=== PATIENT | male | born 1990 | race Caucasian/White ===

== ENCOUNTER 2023-05-21 00:47 | Emergency (ER) | payer OTHER ==
[2023-05-21 01:40] VITALS: BP 143/84; PULSE 77; RESP 18; TEMP 98.2
[2023-05-21] MEDS ORDERED: IBUPROFEN 800 MG TAB PO STA (01:59)
--- NOTE | 2023-05-21 02:50 | ED ---
General Adult HPI - General Chief complaint: ENT Stated complaint: dislocated jaw Time Seen by Provider: 05/21/23 01:29 Source: patient, RN notes reviewed Mode of arrival: ambulatory Limitations: no limitations - History of Present Illness Initial comments: 32-year-old male with no significant past medical history presents the emergency department with a chief complaint of jaw pain. Patient reports that he has a previous chart injury from years ago. He reports that he was slightly the face prior to arrival. He is complaining of right-sided jaw pain. He is still able to open and close his mouth. He is able to tolerate by mouth intake. Denies any cough or respiratory distress or difficulty breathing. - Related Data Allergies Allergy/AdvReac Type Severity Reaction Status Date / Time No Known Allergies Allergy Verified 05/21/23 01:54 Review of Systems ROS Statement: Those systems with pertinent positive or pertinent negative responses have been documented in the HPI. ROS Other: All systems not noted in ROS Statement are negative. Past Medical History Past Medical History: No Reported History History of Any Multi-Drug Resistant Organisms: None Reported Past Surgical History: No Surgical Hx Reported Past Psychological History: No Psychological Hx Reported Smoking Status: Current every day smoker Past Alcohol Use History: Occasional Past Drug Use History: Marijuana General Exam - General Exam Comments Initial Comments: General: Alert, in no acute distress Head: atraumatic normocephalic. Eyes PERRL, EOMI intact, mucous membranes moist, TM joint-equal and bilaterally. No clicking or grinding or popping. Respiratory: Lungs clear to auscultation bilaterally Cardiovascular: Rate regular rate and rhythm Abdominal: Soft without guarding or rebound Extremities: Normal inspection with full range of motion and normal capillary refill Neuroogic: alert and oriented 3, CN II-XII intact, able to ambulate with steady gait Skin: warm dry and intact with normal color Limitations: no limitations Course Vital Signs 05/21/23 01:19 Temperature 98.2 F Pulse Rate 77 Respiratory 18 Rate Blood Pressure 143/84 O2 Sat by Pulse 97 Oximetry - Reevaluation(s) Reevaluation #1: 05/21/23 02:50 Patient requesting to leave prior to CT results. Patient agreeable to leave against medical advice Medical Decision Making - Medical Decision Making Was pt. sent in by a medical professional or institution (, PA, [employer] S[employer] OPERATOR, urgent care, hospital, or care home...) When possible be specific @ -[No] Did you speak to anyone other than the patient for history (EMS, parent, family, police, friend...)? What history was obtained from this source @ -[No] Did you review nursing and triage notes (agree or disagree)? Why? @ -[I reviewed and agree with nursing and triage notes] Were old charts reviewed (outside hosp., previous admission, EMS record, old EKG, old radiological studies, urgent care reports/EKG's, care home records)? Report findings @ -[No old charts were reviewed] Differential Diagnosis (chest pain, altered mental status, abdominal pain women, abdominal pain men, vaginal bleeding, weakness, fever, dyspnea, syncope, headache, dizziness, GI bleed, back pain, seizure, CVA, palpatations, mental health, musculoskeletal)? @ -[not applicable] EKG interpreted by me (3pts min.). @ -[As above] X-rays interpreted by me (1pt min.). @ -X-ray does not reveal any acute fracture or dislocation. CT interpreted by me (1pt min.). @ - U/S interpreted by me (1pt. min.). @ -[None done] What testing was considered but not performed or refused? (CT, X-rays, U/S, labs)? Why? @ -[None] What meds were considered but not given or refused? Why? @ -[None] Did you discuss the management of the patient with other professionals (professionals i.e. , PA, [employer] OPERATOR, lab, RT, psych nurse, outreach and education social worker, support dba, teacher, human resource officer, showcase maker)? Give summary @ -[No] Was smoking cessation discussed for >3mins.? @ -[No] Was critical care preformed (if so, how long)? @ -[No] Were there social determinants of health that impacted care today? How? (Homelessness, low income, unemployed, alcoholism, drug addiction, transportation, low edu. Level, literacy, decrease access to med. care, shelter, rehab)? @ -[No] Was there de-escalation of care discussed even if they declined (Discuss DNR or withdrawal of care, Hospice)? DNR status @ -[No] What co-morbidities impacted this encounter? (DM, HTN, Smoking, COPD, CAD, Cancer, CVA, ARF, Chemo, Hep., AIDS, mental health diagnosis, sleep apnea, morbid obesity)? @ -[None] Was patient admitted / discharged? Hospital course, mention meds given and route, prescriptions, significant lab abnormalities, going to OR and other pertinent info. @ -[AGAINST MEDICAL ADVICE. This is a 32-year-old male who presents the emergency department with right jaw pain. Patient able to open TMJ joints equal and bilaterally. No clicking or popping or grinding. Patient able to tolerate oral intake. Patient had x-rays and CT imaging. Patient verbalized that he did not want to wait for the results. Some benefits were discussed at length regarding bleeding prior to results. Patient verbalized understanding and all cushions were addressed. Patient left ED in stable condition with a steady gait. Undiagnosed new problem with uncertain prognosis? @ -[No] Drug Therapy requiring intensive monitoring for toxicity (Heparin, Nitro, Insulin, Cardizem)? @ -[No] Were any procedures done? @ -[No] Diagnosis/symptom? @ -Jaw Pain Acute, or Chronic, or Acute on Chronic? @ -Acute Uncomplicated (without systemic symptoms) or Complicated (systemic symptoms)? @ -Uncomplicated Side effects of treatment? @ -[No] Exacerbation, Progression, or Severe Exacerbation? @ -[No] Poses a threat to life or bodily function? How? (Chest pain, [place], [place], pneumonia, PE, COPD, DKA, ARF, appy, cholecystitis, CVA, Diverticulitis, Homicidal, Suicidal, threat to staff... and all critical care pts) @ -Low likelihood Disposition Clinical Impression: Jaw pain Disposition: LEFT AGAINST MEDICAL ADVICE Condition: Undetermined Is patient prescribed a controlled substance at d/c from ED?: No Referrals: None,Stated [Primary Care Provider] - 1-2 days Time of Disposition: 02:49
--- NOTE | 2023-05-21 07:48 | XR ---
EXAM: XR Mandible Complete, 4 or More Views CLINICAL HISTORY: ITS.REASON XR Reason: Jaw pain TECHNIQUE: Frontal, oblique and lateral views of the mandible. COMPARISON: No relevant prior studies available. FINDINGS: Dental: There is a periapical lucency about tooth #7 concern for a periapical abscess. There is a large dental caries of tooth #3 status post root canal. Bones/joints: Incomplete fusion of the posterior ring of C1. No acute fracture. No dislocation. Soft tissues: Prominent cervical lymph nodes. IMPRESSION: No evidence of acute facial bone pathology. There is a periapical lucency about tooth #7 concerning for periapical abscess.
--- NOTE | 2023-05-21 08:00 | CT ---
EXAM: CT Head and Maxillofacial Without Intravenous Contrast CLINICAL HISTORY: ITS.REASON CT Reason: r/out TMJ dislocation TECHNIQUE: Axial computed tomography images of the head/brain and face without intravenous contrast. CTDI is 16.9 mGy and DLP is 425.6 mGy-cm. This CT exam was performed using one or more of the following dose reduction techniques: automated exposure control, adjustment of the mA and/or kV according to patient size, and/or use of iterative reconstruction technique. COMPARISON: No relevant prior studies available. FINDINGS: Brain: Unremarkable. No hemorrhage. No significant white matter disease. No edema. Ventricles: Unremarkable. No ventriculomegaly. Bones/joints: Incomplete fusion of the posterior limb of C1. No acute fracture. Periapical lucency about tooth #7 concerning for periapical abscess. Recommend dental consult. Soft tissues: Prominent cervical lymph nodes. Sinuses: Unremarkable as visualized. No acute sinusitis. Mastoid air cells: Unremarkable as visualized. No mastoid effusion. Orbits: Unremarkable as visualized. IMPRESSION: Periapical lucency about tooth #7 concerning for periapical abscess. Prominent cervical lymph nodes.
== END 2023-05-21 02:50 | disposition left against medical advice (07) ==
LOC: EC 00:47
DX: R68.84 Jaw pain (principal); F17.200 Nicotine dependence, unspecified, uncomplicated; F12.90 Cannabis use, unspecified, uncomplicated; Z53.29 Procedure and treatment not carried out because of patient's decision for other reasons
CPT/HCPCS: 70110; 70486; 99284